=== PATIENT | female | born 1985 | race Caucasian/White ===

== ENCOUNTER 2024-08-20 15:08 | Outpatient (AMB) | payer OTHER, SELFPAY ==
--- OUTSIDE RECORDS SUMMARY | 2024-08-20 15:10 | XMS_ITS | Clinical Summary ---
Author Organization [facility] Address [address] [place] [id number] Care Team Providers Care Activities Specialist Name Role Phone Bette Alexander NP Primary Care Provider [phone] Allergies No known active allergies Medications clindamycin (CLEOCIN T) 1 % lotion APPLY A THIN LAYER TO FACE AND CYST AREAS ON BODY EVERY MORNING. MAY MOISTURIZE OVER. 2 Active doxycycline (MONODOX) 100 mg capsule TAKE 1 CAPSULE BY MOUTH TWICE A DAY WITH FOOD. PHOTOSENSITIVE. 2 Active tretinoin (RETIN-A) 0.025 % cream PLEASE SEE ATTACHED FOR DETAILED DIRECTIONS 2 Active triamcinolone (KENALOG) 0.1 % cream PLEASE SEE ATTACHED FOR DETAILED DIRECTIONS 2 Active Active Problems Problem Noted Date Diagnosed Date History of COVID-19 10/11/2021 Overview (10/11/2021): 03/2021 and 09/2021 Impaired fasting glucose 08/24/2021 Vitamin D deficiency 08/24/2021 Hidradenitis suppurativa 08/20/2021 Overview (03/08/2022): Followed by dermatology 12/10/2021: worsening; clindamycin topical, sarecycline, if no improvement start humira, f/u 3 months 03/07/2022: no improvement. Start Humira, continue clindamycin topical. Spironolactone if not improved, surgical intervention or hair laser if needed Flexural eczema 08/20/2021 Overview (08/20/2021): Followed by dermatology Insomnia 08/20/2021 Anxiety 08/20/2021 Immunizations Name Administration Dates Next Due COVID Moderna SARS-CoV-2 mRNA LNP, PF Vaccine (R ed) 09/16/2020,08/19/2020 COVID-19 Moderna SARS-CoV-2 mRNA 50 mcg/0.25 mL Booster (Red) 04/21/2021 Tdap 08/20/2021 Family History Medical History Relation Comments Cancer Cousin Diabetes Father Hypertension Father Hypertension Father's Brother Asthma Mother Diabetes Mother Heart disease Mother Diabetes Mother's Sister Alcohol abuse Paternal Grandfather Hypertension Paternal Grandfather Cancer Paternal Grandmother Relation Status Comments Cousin Alive Father Alive Father's Brother Alive Maternal Grandfather Mother Alive Mother's Sister Paternal Grandfather Paternal Grandmother Social History Tobacco Use Types Packs/Day Years Used Date Smoking Tobacco: Every Day Cigarettes Smokeless Tobacco: Never 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 Alcohol Use Standard Drinks/Week Comments Yes 0 (1 standard drink = 0.6 oz pure alcohol) 1 can beer at dinner on weekends Humiliation, Afraid, Rape, and Kick questionnair e Answer Date Recorded Within the last year, have y ou been afraid of your partner or ex-partner? Patient declined 05/30/2020 Within the last year, have y ou been humiliated or emotionally abused in other ways by your partner or ex-partner? Patient declined 05/30/2020 Within the last year, have y ou been kicked, hit, slapped, or otherwise physically hurt by your partner or ex-partner? Patient declined 05/30/2020 Within the last year, have y ou been raped or forced to have any kind of sexual activity by your partner or ex-partner? Patient declined 05/30/2020 Social Connection and Isolation Panel [NHANES] A nswer Date Recorded In a typical week, how many times do you talk on the phone with family, friends, or neighbors? Patient declined 05/30/2020 How often do you get togethe r with friends or relatives? Patient declined 05/30/2020 How often do you attend moravian or baptism serv ices? Patient declined 05/30/2020 Do you belong to any clubs o r organizations such as moravian groups, unions, fraternal or athletic groups, or school groups? Patient declined 05/30/2020 How often do you attend meet ings of the clubs or organizations you belong to? Patient declined 05/30/2020 Are you , , di vorced, , never , or living with a partner? Patient declined 05/30/2020 AUDIT-C Answer Date Recorded Q1: How often do you have a drink containing alc ohol? 2-4 times a month 05/30/2020 Average Number of Drinks Not on file 021 Frequency of Binge Drinking Not on file 08/2020 PHQ-2 Answer Date Recorded Depression Risk (PHQ2) Score 4 Exercise Vital Sign Answer Date Recorde d On average, how many days pe r week do you engage in moderate to strenuous exercise (like a brisk walk)? Patient declined On average, how many minutes do you engage in exercise at this level? Patient declined 05/30/2020 Hunger Vital Sign Answer Date Recorded Within the past 12 months, y ou worried that your food would run out before you got the money to buy more. Never true 05/31/19 21 Within the past 12 months, t he food you bought just didn't last and you didn't have money to get more. Never true 05/30/2020 PRAPARE - Transportation Answer Date Re corded In the past 12 months, has l ack of transportation kept you from medical appointments or from getting medications? No 08/2020 In the past 12 months, has l ack of transportation kept you from meetings, work, or from getting things needed for daily living? No 05/30/2020 Comments Unknown Sex and Gender Information Value Date Recorded Sex Assigned at Not on file Legal Sex Female 11:24 AM MST Gender Identity Not on file Sexual Orientation Not on file Occupation Industry Job Start Date Job End Date Not on file Not on file Not on file Not on file Last Filed Vital Signs Vital Sign Reading Time Taken Comments Blood Pressure 116/83 08/20/2021 7:06 AM EDT Pulse 83 08/20/2021 7:06 AM EDT Temperature 36.5 ??C (97.7 ??F) 08/20/2021 7:06 AM ED T Respiratory Rate 16 09/17/2019 3:49 PM EDT Oxygen Saturation 97% 10/11/2021 8:44 AM EDT Inhaled Oxygen Concentration - - Weight 80.1 kg (176 lb 9.6 oz) 08/20/2021 7:06 A M EDT Height 148.5 cm (4' 10.47 ) 08/20/2021 7:06 AM E DT Body Mass Index 36.32 08/20/2021 7:06 AM EDT Plan of Treatment Health Maintenance Due Date Last Done Comments PHQ-9 Depression Screen 1997 MARCELA-7 Anxiety Screen 2003 Annual Preventive Exam 08/20/2022 , 05/30/2020, 10/26/2017 Cervical Cancer Screening (Pap/HPV) 10/26/202210/26 COVID-19 Vaccine ( - 2023-2 5 season) 2023 04/21/2021, 09/16/2020, 08/19/2020 Influenza Vaccine (Season Ended) 2024 DTaP,Tdap,and Td Vaccines (2 - Td or Tdap) 08/21/2031 08/20/2021 RSV Vaccine (SCDM) (1 - 1-do se 75+ series) 2060 Hepatitis C Screening Completed 04/25/2019 Procedures Procedure Name Priority Date/Time Associated Diagnosis Comments HEPATITIS C ANTIBODY Routine 04/25/2019 1:40 PM EST Screening for STDs (sexually transmitted diseases) from Last 3 Months or Most Recently Relevant to Health Maintenance Results * Hepatitis C antibody (04/25/2019 1:40 PM EST) Hep C Virus Ab <0.1 0.0 - 0.9 s/co ratio [facility] Comment: ?Negative: ? < 0.8 ? Indeterminate: 0.8 - 0.9 ?Positive: ? > 0.9 The CDC recommends that a positive HCV antibody result be followed up with a HCV Nucleic Acid Amplification test ([id number]). Blood (Blood, Venous) 04/25/2019 1:40 PM EST 04/25/2019 Comment:BLOOD, VENOUS Narrative [facility] - 04/26/2019 8:14 AM EST Performed at: ??01 - [facility] [address] ??[id number] Sulfuric Acid Plant Operator: Odette Concepcion MD, Phone: ??[phone] us Ananda JIN LAB BLOOD ORDERABLES Final Resul t [facility] from Last 3 Months or Most Recently Relevant to Health Maintenance Insurance [employer] Care Teams Activities Specialist Relationship Specialty Start Date End Date Bette Alexander NP [address] [place] [id number] PCP - General Family Medicine 08/20/21
--- NOTE | 2024-08-20 15:12 | A.OFFPC_ITS ---
Vital Signs 08/20/24 15:19 Height 4 ft 11 in Weight 190 lb BMI 38.4 BP 116/70 Blood Pressure Location Rt brachial Position Sitting Respiration 14 Pulse 88 Pulse Source Pulse Oximeter Temp 97.9 F Temp Source Temporal Artery Scan Pulse Oximetry (%) 97 Oxygen Delivery Method Room Air Intake Visit Reasons: CPE Intake Note: Karey Presents in the office to establish care. Allergies oxycodone Allergy (Verified 08/20/24 15:25) Swelling Tobacco use date assessed: 08/20/24 Dental Screening Dental Screen Date: 08/20/24 Did you have a dental visit in the last 12 months?: Yes Did you have a dental problem in the last 6 months where you did not have access to dental care?: No Was dental information given to patient?: Patient has dentist HPI HPI Comments History of Present Illness Details 39-year-old female presents to establish care Prior PCP? - Andrew Luz (practice closed) Last office visit/CPE - About 10 years ago Last labs - Several months ago Acute issue(s) - Hidradenitis suppurativa; she notes th at she is on spironolactone 100 mg twice daily. She is followed by dermatology. - She reports history of anxiety and dep ression due to work and family stressors. She notes that his symptoms have gradually improved. She was prescribed marijuana by her former PCP; she stopped using marijuanna due to associated increased anxiety symptoms. She has denies h/o psychotherapy or psychotropic medications. She denies history of psychiatric admissions. - She reports intermittent left heel norbert n which has been ongoing for the past 2 months. The pain intensify with walking and stretching. She has been taking Tylenol and ibuprofen with short-term relief. Past Medical History - Hidradenitis suppurativa, anxiety, dep ression Surgical History - Carpal tunnel repair right hand, tubal ligation Family History - Dad: Hypertension, diabetes, hyperlipi demia - PGM: Skin cancer - PGF: Alcohol use disorder Social History - Former smoker, smoked 1 pack every 3 d ays for over 15 yrs, quit 2 years ago. Vapes nicotine daily. Has not drank alcohol since 11/2023; denies h/o AUD. Denies recreational drug use - Has been making unhealthy dietary auguste morris.Walks regularly. 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 Referr ed to Ophthalmology for routine eye exam - Last dental visit was a year ago; vanita uraged to schedule an appointment with his dentist for routine dental care - Last tetanus vaccine was in 2011; rece ived Tdap vaccine today - Has not been vaccinated for the flu season; declines vaccination - Last pap smear test was over 10 years ago. Referred to [facility] for a Pap smear test [facility] Medical History (Updated 08/20/24 @ 16:10 by Yasmany Soler CNP) Carpal tunnel syndrome of right wrist Surgical History (Updated 08/20/24 @ 15:35 by Valentina Daly MA) History of tubal ligation Family History (Updated 08/20/24 @ 15:33 by Valentina Daly MA) Maternal Uncle Substance abuse Paternal Uncle Substance abuse Father Hypertension Hyperlipemia Diabetes Paternal Grandmother Skin cancer Paternal Grandfather Alcoholism Maternal Aunt Breast cancer Family/Other Breast cancer Social History (System 04/17/23 @ 14:27 by Katelyn Le) Housing: House Alcohol intake: former Comment: Sober since November 2023 Patient Tobacco Use Status: Former Tobacco user Tobacco use type: Cigarette Cigarette Packs Per Day: 1 Cigarettes Per Day: 6 Years Smoked: 10 e-Cigarette/Vaping Use: Currently Using Second Hand Smoke Exposure: No service: No Current occupational status: employed 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 1. Little interest or pleasure in doing things: nearly every day 2. Feeling down, depressed, or hopeless: more than half the days 3. Trouble falling or staying asleep, or sleeping too much: not at all 4. Feeling tired or having little energy: several days 5. Poor appetite or overeating: several days 6. Feeling bad about yourself - or that you are a failure or have let yourself or your family down: not at all 7. Trouble concentrating on things, such as reading the newspaper or watching television: not at all 8. Moving or speaking so slowly that other people could have noticed. Or the opposite - being so fidgety or restless that you have been moving around a lot more than usual: not at all 9. Thoughts that you would be better off or of hurting yourself in some way: not at all Total score: 7 Depression Screening Interpretation: Positive Depression Screening Done: Yes [id number] - PHQ-9 Billing: Yes Source: Developed by Drs. Wilmer Mullins, Tina Busby, Kameron Riley and colleagues, with an educational parth from [employer]. Thrive Questionnaire Date Thrive assessed: 08/20/24 I am a: Patient What is your living situation today?: I have a steady place to live Within the past 12 months, did the food you bought not last and you didn't have the money to get more?: Never true Within the past 12 months, did you worry whether your food would run out before you got money to buy more?: I choose not to answer this question Do you have trouble paying for medicines?: No Do you have trouble getting transportation to medical appointments?: No Do you have trouble paying your heating and electricity bill?: No Do you have trouble taking care of your child, family member or friend?: No Do you have trouble with day-to-day activities such as bathing, preparing meals, shopping, managing finances, etc.?: No Are you currently unemployed and looking for a job?: No Are you interested in more education?: No Please select the resources that you would like help with: None Currently or been in a relationship where the following occur: No concerns reported THRIVE Score: 0 AUDIT C Alcohol Use Questionnaire (AUDIT-C) 1. How often do you have a drink containing alcohol?: Monthly or less 2. How many drinks containing alcohol do you have on a typical day when you are drinking?: 1 or 2 3. How often do you have six or more drinks on one occasion?: Never Total Score: 1 Score Reviewed/Action Taken: No MARCELA-7 AMB Questionnaire MARCELA-7 Date MARCELA - 7 assessed: 08/20/24 Feeling nervous, anxious, or on edge: 1 = Several days Not being able to stop or control worryin = Several days Worrying too much about different things: 1 = Several days Trouble relaxin = Several days Being so restless that it is hard to sit still: 0 = Not at all Becoming easily annoyed or irritable: 1 = Several days Feeling afraid as if something awful might happen: 0 = Not at all Total MARCELA-7 score (0-4 normal; 5-9 mild; 10-14 moderate; 15-21 severe): 5 Source: Developed by Drs. Wilmer Mullins, Tina Busby, Kameron Riley and colleagues, with an educational parth from [employer]. MARCELA-7 Assessment Billing MARCELA-7 Assessment Tool: MARCELA-7 Assessment 37963 Review of Systems Const Details: Denies chills, Denies fatigue, Denies fever(s), Denies headache(s) and Denies weakness HEENT Denies change in vision, Denies dizziness, Denies headache(s), Denies hearing loss, Denies nasal congestion, Denies sinus pain, Denies sinus pressure and Denies sore throat Card Denies chest pain, Denies lightheadedness, Denies dyspnea and Denies other (palpitations) Resp Denies cough, Denies dyspnea and Denies wheezing GI Denies abdominal pain, Denies melena, Denies hematochezia, Denies change in bowel habits, Denies dyspepsia and Denies nausea Denies hematuria and Denies dysuria Musc Reports left heel pain, Denies abnormal gait, Denies arthralgias, Denies numbness and Denies tingling Skin/Breast Denies rash, Denies unusual bruising and Denies wounds Neuro Denies abnormal gait, Denies dizziness, Denies headache(s), Denies memory loss, Denies numbness, Denies Sensory deficit (Neuro), Denies tingling and Denies weakness Psych Reports anxiety, Reports depression and Denies memory loss Endo Denies cold intolerance, Denies fatigue, Denies heat intolerance, Denies polydipsia and Denies polyuria Timi/Lymph Denies easy bleeding and Denies easy bruising Aller/Immun Denies wheezing Physical exam (Primary Care) Vital Signs: Last Vital Signs Temp 97.9 F 08/20/24 15:19 Pulse 88 08/20/24 15:19 Resp 14 08/20/24 15:19 BP 116/70 08/20/24 15:19 Pulse Ox 97 08/20/24 15:19 Oxygen Delivery Method Room Air 08/20/24 15:19 BMI result Body Mass Index 38.4 Tobacco/Smoking Status: Tobacco use Status Tobacco use date assessed 08/20/24 08/20/24 15:20 Patient Tobacco Use Status Former Tobacco user 08/20/24 15:20 Tobacco use type Cigarette 08/20/24 15:20 e-Cigarette/Vaping Use Currently Using 08/20/24 15:20 PHQ-9: PHQ-9 Score PHQ-9: Total score 7 08/20/24 15:20 Depression Screening Interpretation: Positive Thrive Assessment: Date of Thrive Assessment Date Thrive assessed 08/20/24 08/20/24 15:20 Currently or been in a relationship where the following occur: No concerns reported Const Other: General: no acute distress, well developed, alert and awake Nutritional Appearance: well nourished Orientation/consciousness: patient oriented x3 HENMT Head: Yes normocephalic and Yes atraumatic Ears: hearing grossly normal bilaterally and TM's normal bilaterally General nose exam: Normal external nose present and Normal nares present Mouth: Normal oral and palatal mucosa present and moist mucous membranes Teeth and gingiva: dentition normal Throat: Yes oropharynx normal Eyes Pupils: Equal, round and reactive pupils present and Pupil accommodation reflex normal EOM: EOMs intact bilaterally Neck Neck: Yes normal visual inspection, Yes no lymphadenopathy and Yes trachea midline Thyroid: Thyroid normal Carotids: no bruits Lymphatic: no lymphadenopathy noted Chest Chest palpation & inspection: normal inspection of the chest Resp Effort & Inspection: normal respiratory effort Auscultation: clear to auscultation bilaterally Cardio Rate: regular rate Rhythm: regular rhythm Heart sounds: S1 normal heart sound present, S2 normal heart sound present, no gallops, no murmurs and no rubs Bruits: no abdominal aortic bruits and no carotid bruits GI Palpation (GI): No Abdominal aortic bruit present, Soft to palpation, nontender, No hepatosplenomegaly present and No Rebound tenderness present Auscultation: normal bowel sounds General: Yes no CVA tenderness Back/Spine/Pelvis Back: no CVA tenderness Cervical Spine: cervical ROM normal and No Cervical spine tenderness Thoracic/Lumbar Spine: thoraco-lumbar ROM normal, No pain with thoraco-lumbar ROM, No thoracic spinal tenderness and No lumbar spinal tenderness Skin General: warm and dry. Normal skin color. Normal skin turgor Lesions: no lesions Rashes: no rashes Trauma: no lacerations or abrasions Wounds: no wounds Nails: normal Neuro General: patient oriented x3, gait normal and CN's II-XI intact bilaterally Cranial nerves: Yes Equal, round and reactive pupils present Cognition (Neuro): normal cognition Gait exam (Neuro): Normal gait present Motor exam (neuro): 5/5 motor strength present throughout Sensory Exam: No Sensory deficit (Neuro) Deep tendon reflexes (DTR's): Right patellar reflex intensity grade: 2+ and Left patellar reflex intensity grade: 2+ Extrem General: Yes normal to inspection, No edema and No calf tenderness Psych Appearance: grossly normal Affect: normal affect Attitude: cooperative Thought process: Normal thought process present Immunizations Boostrix Tdap 2.5 Lf unit-8 mcg-5 Lf/0.5 mL intramuscular syringe Performing Provider: Yasmany Soler CNP Performing Location: [facility] Administered by: Catarina Washburn RN on 08/20/24 16:10 Dose Route Admin Location Dispensed Lot Number Expiration Date [facility] Box Sorter 0.5 mL IM Left Deltoid 0.5 mL [id number] 11/19/26 [id number] [employer] VIS Given Date VIS Provided VIS Publication Date 08/20/24 Single Vaccine 20 Eligibility Eligibility Date Funding Source Not [facility] Eligible 08/20/24 Private Coding Level of Care Code New Pt Level 4 (98216) New Pt Prev Care 18-39yr(70967 Diagnoses Normal physical examination, routine Z00.00 Hidradenitis suppurativa L73.2 Anxiety and depression F41.9; F32.A Obesity (BMI 30-39.9) E66.9 Pain of left heel M79.672 Eye exam, routine Z01.00 Pap smear for cervical cancer screening Z12.4 Engages in vaping Z72.89 Laboratory tests ordered as part of a complete physical exam (CPE) Z00.00 Additional Codes MARCELA-7 Assessment Billing - MARCELA-7 Assessment Tool: MARCELA-7 Assessment 86503 ([id number]) PHQ-9 - 49331 - PHQ-9 Billing: Yes ([id number]) Assessment & Plan Assessment & Plan (1) Normal physical examination, routine: Code(s): Z00.00 - Encounter for general adult medical examination without abnormal findings Category: Medical Plan: No significant functional limitation noted. Continue current treatment. Healthy diet and routine exercise encouraged. Perform lab work and follow-up for telehealth visit in 2-3 weeks for labs review. Return sooner with symptoms or concerns. Verbalized understanding and agreed with treatment plan. (2) Hidradenitis suppurativa: Code(s): L73.2 - Hidradenitis suppurativa Category: Medical Plan: She is on spironolactone 100 mg twice daily. Followed by Dermatology. (3) Anxiety and depression: Code(s): F41.9 - Anxiety disorder, unspecified; F32.A - Depression, unspecified Category: Medical Plan: She reports history of anxiety and depression due to work and family stressors. She notes that his symptoms have gradually improved. She was prescribed marijuana by her former PCP; she stopped using marijuanna due to associated increased anxiety symptoms. She has denies h/o psychotherapy or psychotropic medications. She denies history of psychiatric admissions. Declines pharmacotherapy or psychotherapy at this time and notes that prayers have been effective and will continue to pray. Healthy diet and routine exercise encouraged. Follow-up with worsening or new symptoms. Verbalized understanding and agreed with the treatment plan. (4) Obesity (BMI 30-39.9): Code(s): E66.9 - Obesity, unspecified Category: Medical Plan: She currently weighs 190 lb, BMI is 38.4. She has been making unhealthy dietary choices. Healthy diet and routine exercise encouraged. Referred to dietitian/candy separator hard as requested. Follow-up as needed. Verbalized understanding and agreed with the plan. (5) Pain of left heel: Code(s): M79.672 - Pain in left foot Category: Medical Plan: She reports intermittent left heel pain which has been ongoing for the past 2 months. The pain intensify with walking and stretching. She has been taking Tylenol and ibuprofen with short-term relief. Bone spurs Likely. Advised to take Tylenol ibuprofen as needed for pain. X-ray ordered; will review results and make changes as needed. Verbalized understanding and agreed with plan. (6) Eye exam, routine: Code(s): Z01.00 - Encounter for examination of eyes and vision without abnormal findings Category: Medical Plan: Last eye exam was 10 years ago. Referred to Ophthalmology for routine eye exam. (7) Pap smear for cervical cancer screening: Code(s): Z12.4 - Encounter for screening for malignant neoplasm of cervix Category: Medical Plan: Last pap smear test was over 10 years ago. Referred to [facility] transit vehicle inspector for a Pap smear test. (8) Engages in vaping: Code(s): Z72.89 - Other problems related to lifestyle Category: Medical Plan: She vapes daily. Instructed on the health risks and complications of vaping and cessation encouraged. May prescribed nicotine patch for nicotine dependence as needed. Follow-up as needed. Verbalized understanding and agreed with the plan. (9) Laboratory tests ordered as part of a complete physical exam (CPE): Code(s): Z00.00 - Encounter for general adult medical examination without abnormal findings Category: Medical Plan: Fasting labs ordered as part of a complete physical exam. Advised to fast for at least 10 hours before getting labs drawn. May drink water Verbalized understanding and agreed with treatment plan. Orders: Orders Microalbumin, Random (w Creat) Today Z00.00 - Encounter for general adult medical examination without abnormal findings TSH reflex Free T4 Today Z00.00 - Encounter for general adult medical examination without abnormal findings Vitamin D 25-OH Total Today Z00.00 - Encounter for general adult medical examination without abnormal findings TDaP Immunization Today Z23 - Encounter for immunization Complete Blood Count Auto Diff Today Z00.00 - Encounter for general adult medical examination without abnormal findings Comprehensive [place]. Panel Fast Today Z00.00 - Encounter for general adult medical examination without abnormal findings Lipid Panel Today Z00.00 - Encounter for general adult medical examination without abnormal findings UA CC w/rflx Micro + Cult Today Z00.00 - Encounter for general adult medical examination without abnormal findings XR foot LT 2V Today M79.672 - Pain in left foot Referrals Ophthalmology Referral Z01.00 - Encounter for examination of eyes and vision without abnormal findings MATERIAL REQUIREMENTS PLANNING MANAGER Referral Z12.4 - Encounter for screening for malignant neoplasm of cervix Nutrition/Dietitian Referral E66.9 - Obesity, unspecified
[2024-08-20 15:19] VITALS: BP 116/70; PULSE 88; RESP 14; TEMP 36.6; O2SAT 97; BMI 38.4
== END 2024-08-20 16:01 | disposition home or self-care (01) ==
LOC: HO.HMCFM 15:08
PROVIDERS: PCP Nurse Practitioner Family; Visit Provider Nurse Practitioner Family
DX: Z00.00 Encounter for general adult medical examination without abnormal findings (principal); L73.2 Hidradenitis suppurativa; Z68.38 Body mass index [BMI] 38.0-38.9, adult; E66.9 Obesity, unspecified; F41.9 Anxiety disorder, unspecified; F32.A Depression, unspecified; M79.672 Pain in left foot; Z72.89 Other problems related to lifestyle; Z23 Encounter for immunization

== ENCOUNTER → 2024-08-20 15:08 | Outpatient (BNVA) | payer OTHER, SELFPAY | PROVIDERS: PCP Nurse Practitioner Family; Visit Provider Nurse Practitioner Family | DX: Z00.00 Encounter for general adult medical examination without abnormal findings (principal); L73.2 Hidradenitis suppurativa; F41.9 Anxiety disorder, unspecified; F32.A Depression, unspecified; E66.9 Obesity, unspecified; M79.672 Pain in left foot; Z72.89 Other problems related to lifestyle; Z23 Encounter for immunization | CPT/HCPCS: 90471; 90715; 96127 ==

== ENCOUNTER 2024-08-24 10:02 | Outpatient (REF) | payer OTHER, SELFPAY ==
--- NOTE | ~2024-08-24 | XR_ITS ---
EXAMINATION: XR FOOT 3 OR MORE VIEWS LEFT HISTORY: M79.672 - Pain in left foot COMPARISON: There are no prior studies available for comparison. FINDINGS: Three views of the left foot are submitted. Osseous mineralization is normal. A triangular osseous density is seen at the anterolateral aspect of the calcaneus on the AP view which could represent a fracture fragment of indeterminate age. The bones are otherwise intact. The joint spaces are preserved. The soft tissues are unremarkable. XR/XR foot LT min 3V IMPRESSION: Triangular osseous density at the anterolateral aspect of the calcaneus which could represent a fracture fragment of indeterminate age. Clinical correlation is recommended. Electronically signed by: Wilmer Prieto MD 08/26/2024 07:26 AM EDT
[2024-08-24 11:52] LABS: MANUAL DIFF FLAG NO
[2024-08-24 11:58] LABS: Basophils Percent Auto 0.3 % (0-2); Eosinophils Absolute Auto 0.2 X10*3/uL (0.0-0.4); Eosinophils Percent Auto 2.5 % (0-4); Hematocrit 36.7 % (37.0-47.0); Hemoglobin 12.2 g/dl (12.0-16.0); Imm Gran Abs Auto 0.04 X10*3/uL (0.00-0.03); Imm Gran Pct Auto 0.5 % (0.0-0.4); Lymphocytes Absolute Auto 1.9 X10*3/uL (1.2-4.9); Lymphocytes Percent Auto 24.9 % (20-40); Mean Corpuscular HGB Conc 33.2 g/dl (31.0-35.0); Mean Corpuscular Volume 87.4 fL (80.0-98.0); Mean Platelet Volume 10.2 fL (9.4-12.3); Monocytes Absolute Auto 0.5 X10*3/uL (0.1-1.2); Monocytes Percent Auto 6.8 % (2-11); Platelet Count 244 X10*3/uL (160-400); Red Cell Distribution Width 12.8 % (11.0-16.0); White Blood Count 7.6 X10*3/uL (4.8-10.8)
[2024-08-24 12:33] LABS: Alanine Aminotransferase 19 U/L (0-31); Albumin Level 4.3 g/dL (3.5-5.0); Alkaline Phosphatase 86 U/L (39-117); Anion Gap 12 (12-20); Aspartate Amino Transferase 16 U/L (5-31); Bilirubin Total 0.5 mg/dL (0.0-1.0); Blood Urea Nitrogen 17 mg/dL (9-16); Calcium 9.4 mg/dL (8.4-10.2); Carbon Dioxide 25 mmol/L (22-29); Chloride 106 mmol/L (96-108); Cholesterol 202 mg/dL (<200); Estimated Glomerular Filt Rate > 60; Glucose Fasting 96 mg/dL (60-99); HDL Cholesterol 52 mg/dL (>40); LDL Cholesterol Calculated 130 mg/dL (<100); Potassium 4.4 mmol/L (3.3-5.1); Sodium 139 mmol/L (135-145); Total Protein 7.5 g/dL (6.5-8.0); Triglycerides 103 mg/dL (<150)
[2024-08-24 12:35] LABS: Creatinine Urine 78.91 mg/dL; Microalbumin Urine < 5.0 mg/L
[2024-08-24 12:37] LABS: Appearance Urine Clear; Color Urine Yellow; Glucose Urine UA Negative (Negative); Leukocyte Esterase Urine Negative (Negative); Nitrite Urine Negative (Negative); PH 6.5 (5.0-9.0); Urine Blood Negative (Negative); Urine Ketones Negative (Negative); Urine Protein Negative (Neg-Trace)
[2024-08-24 12:47] LABS: TSH reflex Free T4 0.71 uIU/mL (0.32-4.0)
== END 2024-08-24 10:03 | disposition home or self-care (01) ==
LOC: HO.HMGCX 10:02
PROVIDERS: PCP Nurse Practitioner Family; Visit Provider Nurse Practitioner Family
DX: Z00.00 Encounter for general adult medical examination without abnormal findings (principal); M79.672 Pain in left foot; Z13.6 Encounter for screening for cardiovascular disorders
CPT/HCPCS: 36415; 73630; 80053; 80061; 81003; 82043; 82306; 82570; 84443; 85025

== ENCOUNTER → 2024-08-24 10:28 | Outpatient (BNV) | payer OTHER, SELFPAY | PROVIDERS: PCP Nurse Practitioner Family; Visit Provider Radiology Diagnostic Radiology | DX: M79.672 Pain in left foot (principal) | CPT/HCPCS: 73630 ==

== ENCOUNTER 2024-09-10 15:51 | Outpatient (AMB) | payer OTHER, SELFPAY ==
--- NOTE | 2024-09-10 15:45 | A.OFFPC_ITS ---
Intake Visit Reasons: Telehealth 2-3 wks labs review Intake Note: patient here for follow up Telehealth for lab review Coagulant Dipper Required: No Is last menstrual period known: Yes Last menstrual period: 09/10/24 Post menopausal: No Patient : No Allergies oxycodone Allergy (Verified 09/10/24 15:46) Swelling Tobacco use date assessed: 08/20/24 Dental Screening Dental Screen Date: 08/20/24 Did you have a dental visit in the last 12 months?: No Did you have a dental problem in the last 6 months where you did not have access to dental care?: No Was dental information given to patient?: Patient has dentist HPI HPI Comments History of Present Illness Details 39-year-old female [facility] for review of recent lab results. She admits to eating significant amount of cheese in processed foods. She offers no complaints and denies acute symptoms at this time. [facility] Medical History (Updated 09/10/24 @ 16:01 by Yasmany Soler CNP) Carpal tunnel syndrome of right wrist Surgical History (Updated 08/20/24 @ 15:35 by Valentina Daly MA) History of tubal ligation Family History (Updated 08/20/24 @ 15:33 by Valentina Daly MA) Maternal Uncle Substance abuse Paternal Uncle Substance abuse Father Hypertension Hyperlipemia Diabetes Paternal Grandmother Skin cancer Paternal Grandfather Alcoholism Maternal Aunt Breast cancer Family/Other Breast cancer Social History (Updated 08/20/24 @ 15:19 by Valentina Daly MA) Housing: House Alcohol intake: former Comment: Sober since November 2023 Patient Tobacco Use Status: Former Tobacco user Tobacco use type: Cigarette Cigarette Packs Per Day: 1 Cigarettes Per Day: 6 Years Smoked: 10 e-Cigarette/Vaping Use: Currently Using Second Hand Smoke Exposure: No service: No Current occupational status: employed 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/hazards: No Cognitive needs: No Hearing needs: No Vision needs: No Female Reproductive History Menstrual Date of last menstrual period: 09/10/24 Questionnaire Thrive Questionnaire Date Thrive assessed: 08/20/24 I am a: Patient What is your living situation today?: I have a steady place to live Within the past 12 months, did the food you bought not last and you didn't have the money to get more?: Never true Within the past 12 months, did you worry whether your food would run out before you got money to buy more?: I choose not to answer this question Do you have trouble paying for medicines?: No Do you have trouble getting transportation to medical appointments?: No Do you have trouble paying your heating and electricity bill?: No Do you have trouble taking care of your child, family member or friend?: No Do you have trouble with day-to-day activities such as bathing, preparing meals, shopping, managing finances, etc.?: No Are you currently unemployed and looking for a job?: No Are you interested in more education?: No Please select the resources that you would like help with: None Currently or been in a relationship where the following occur: No concerns reported THRIVE Score: 0 MARCELA-7 AMB Questionnaire MARCELA-7 Date MARCELA - 7 assessed: 08/20/24 Source: Developed by Drs. Wilmer Mullins, Tina Busby, Kameron Riley and colleagues, with an educational parth from [employer]. Physical exam (Primary Care) Tobacco/Smoking Status: Tobacco use Status Tobacco use date assessed 08/20/24 09/10/24 15:51 Patient Tobacco Use Status Former Tobacco user 09/10/24 15:51 Tobacco use type Cigarette 09/10/24 15:51 e-Cigarette/Vaping Use Currently Using 09/10/24 15:51 Thrive Assessment: Date of Thrive Assessment Date Thrive assessed 08/20/24 09/10/24 15:51 Currently or been in a relationship where the following occur: No concerns reported Const Other: Patient is alert and oriented x3 Telehealth Telehealth Telehealth Platform: Telephone Location of provider rendering services: practice address Location of patient: address on file Patient Identification confirmed using: Name, : Yes Telehealth method: voice only Patient verbally consented to treatment: Yes Patient verbally consented to billing insurance company: Yes Patient informed of any privacy concerns related to visit: Yes Coding Level of Care Code Tele Est Pt Level 3 (38340) Diagnoses Hyperlipidemia E78.5 Vitamin D deficiency E55.9 Assessment & Plan Assessment & Plan (1) Hyperlipidemia: Code(s): E78.5 - Hyperlipidemia, unspecified Category: Medical Plan: Recent total cholesterol and LDL levels are elevated, 202 and 130 respectively. She eats significant amount of she and processed foods. Advised to limit foods high in saturated fat and avoid foods high in trans fat. Routine exercise encouraged. Fast for 10-12 hours, may drink water, and perform lipid panel blood work 2-3 days before next visit. Follow-up for telehealth visit in 2 months. Return sooner with symptoms or concerns. Verbalized understanding and agreed with the treatment plan. (2) Vitamin D deficiency: Code(s): E55.9 - Vitamin D deficiency, unspecified Category: Medical Plan: Recent vitamin-D level is low, 17.0. Vitamin D3 2000 units daily ordered; advised to take as prescribed. Informed that the sun is a good source of vitamin D. Will recheck vitamin-D level in 2 months. Verbalized understanding and agreed with the plan. Orders: Orders Lipid Panel 2 Months E78.5 - Hyperlipidemia, unspecified Vitamin D 25-OH Total 2 Months E55.9 - Vitamin D deficiency, unspecified Medications: New cholecalciferol (vitamin D3) 50 mcg PO DAILY 90 days 90 tabs 3RF
== END 2024-09-10 16:15 | disposition home or self-care (01) ==
LOC: HO.HMCFM 15:51
PROVIDERS: PCP Nurse Practitioner Family; Visit Provider Nurse Practitioner Family
DX: E78.5 Hyperlipidemia, unspecified (principal); E55.9 Vitamin D deficiency, unspecified

== ENCOUNTER → 2024-09-10 15:51 | Outpatient (BNVA) | payer OTHER, SELFPAY | PROVIDERS: PCP Nurse Practitioner Family; Visit Provider Nurse Practitioner Family ==

== ENCOUNTER 2024-10-02 14:36 | Outpatient (AMB) | payer OTHER, SELFPAY ==
--- NOTE | 2024-10-02 14:50 | A.OFFVIS_ITS ---
VS Expanded 10/02/24 14:51 10/02/24 15:02 Height 4 ft 11 in 4 ft 11 in Weight 189 lb 9.561 oz 190 lb BMI 38.3 38.4 Intake Visit Reasons: E66.9 - Obesity, unspecified Allergies oxycodone Allergy (Verified 09/10/24 15:46) Swelling Nutrition Presentation Details: Pt presents for MNT for obesity Pt reports choosing a variety of foods, wants to work on meal planning and continue variety of food options coffee , juice water lunch: juice/water, rice/bunch/chicken pork, dinner: fast food /pasta/chicken or rice/chicken, juice food frequency fruits: 0-1/d (juice mainly) fish: 0-1/wk dairy: 2/d vex/wk beverages:w ater/juice PA: ADL etoh/smoking-- BS Monitoring Most Recent Diabetes Results: Microalb/Creat Ratio TNP 08/24/24 Cholesterol, (<200) 202 mg/dL H 08/24/24 HDL Cholesterol, (>40) 52 mg/dL 08/24/24 Triglycerides, (<150) 103 mg/dL 08/24/24 Creatinine, (0.5-1.4) 0.64 mg/dL 08/24/24 BUN, (9-16) 17 mg/dL H 08/24/24 Sodium, (135-145) 139 mmol/L 08/24/24 Potassium, (3.3-5.1) 4.4 mmol/L 08/24/24 Chloride, (96-108) 106 mmol/L 08/24/24 Carbon Dioxide, (22-29) 25 mmol/L 08/24/24 Calcium, (8.4-10.2) 9.4 mg/dL 08/24/24 AST, (5-31) 16 U/L 08/24/24 ALT, (0-31) 19 U/L 08/24/24 Total Protein, (6.5-8.0) 7.5 g/dL 08/24/24 Albumin, (3.5-5.0) 4.3 g/dL 08/24/24 MZR-Ogcvazz-Iy.Jeor Equation Height: 4 ft 11 in Weight: 190 lb Resting Metabolic Rate: 1444.71 Calculated Activity Level: Sedentary Calories Needed to Maintain Weight: 1733.65 Diagnosis Nutrition problem #1: excessive energy intake and overweight/obesity As related to (etiology) #1: diagnosis As evidenced by (sign/symptom) #1: high BMI Monitoring/Goals Nutrition problem monitoring: level of knowledge/skill, total PRO intake, total CHO intake, weight and oral fluids Nutrition goal/outcome: wt loss 5lbs in 2 months Outcome progress: verbalized understanding Learning/Education Readiness to learn: good [facility] Medical History (Updated 09/10/24 @ 16:01 by Yasmany Soler CNP) Carpal tunnel syndrome of right wrist Surgical History (Updated 08/20/24 @ 15:35 by Valentina Daly MA) History of tubal ligation Family History (Updated 08/20/24 @ 15:33 by Valentina Daly MA) Maternal Uncle Substance abuse Paternal Uncle Substance abuse Father Hypertension Hyperlipemia Diabetes Paternal Grandmother Skin cancer Paternal Grandfather Alcoholism Maternal Aunt Breast cancer Family/Other Breast cancer Social History (Updated 08/20/24 @ 15:19 by Valentina Daly MA) Housing: House Alcohol intake: former Comment: Sober since November 2023 Patient Tobacco Use Status: Former Tobacco user Tobacco use type: Cigarette Cigarette Packs Per Day: 1 Cigarettes Per Day: 6 Years Smoked: 10 e-Cigarette/Vaping Use: Currently Using Second Hand Smoke Exposure: No service: No Current occupational status: employed 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 [employer] Current occupational exposures/hazards: No Cognitive needs: No Hearing needs: No Vision needs: No Assessment & Plan Assessment & Plan (1) Obesity (BMI 30-39.9): Code(s): E66.9 - Obesity, unspecified Category: Medical Plan: Wt: 86 Kg ( 10/18 ) Est kcal needs as per MSJ: 1700 (40% carb, 30% protein/fat) Est fluid needs as per 25-30 ml/d: 2600 Est prot per day as per 1 g/kg bw: 90 Recommend fiber intake : 8-10 g per day and gradually increase to 25-28 g per day for women and 35-38 g for men or as tolerated Recommend sodium intake per day : less than 1500 mg less than 2000 mg Educated patient on: ( R = reviewed V = verbalizes understanding N/R = needs review N/A = not applicable * Food sources of carbohydrate, adequate serving sizes and its role in various health conditions: R * Differences between complex carbohydrates a simple carbohydrates, role of fiber in diet: R * Lean protein sources of foods: R * Differences between types of fats and role in diet (mono on saturated fat fatty acids, saturated fatty acids, trans fats): R V N/R * Food sources of sodium in salt and healthy modifications for heart health in kidney health: R V R/V * Vitamins and minerals: R V N/R * Healthy plate method concept: R V N/R * Physical activity: Benefits a precaution: R V N/R Patient Instructions: Work on reducing sugars from beverages and choose foods high in fiber HAv a fruit instead of juice Choose fruit/herb infused flavored beverages Meal plan 45-60 g carb/2-3 oz prot per meal and 0-20 g as snack Coding Level of Care Code Nutr Indiv Intake (98248) Diagnoses Obesity (BMI 30-39.9) E66.9
[2024-10-02 14:51] VITALS: BMI 38.3
[2024-10-15 13:52] VITALS: BMI 38.4
== END 2024-10-02 15:27 | disposition home or self-care (01) ==
LOC: HO.ENCR 14:36
PROVIDERS: PCP Nurse Practitioner Family; Visit Provider Dietitian, Registered
DX: E66.9 Obesity, unspecified (principal)

== ENCOUNTER → 2024-10-02 14:36 | Outpatient (BNVA) | payer OTHER, SELFPAY | PROVIDERS: PCP Nurse Practitioner Family; Visit Provider Dietitian, Registered | DX: Z71.3 Dietary counseling and surveillance (principal); E66.9 Obesity, unspecified | CPT/HCPCS: 97802 ==